=== PATIENT | male | born 1970 | race Caucasian/White ===

== ENCOUNTER 2018-01-01 14:42 | Emergency (ER) | payer OTHER ==
[~2018-01-01] VITALS: Ht 185.4 cm; Wt 94.5 kg
[~2018-01-01 14:42] MED LIST: AMBIEN10 MG PO; BREO ELLIPTA I1 EACH IH; DEXILANT30 MG PO; MOBIC7.5 MG PO; NEURONTIN300 MG PO; PRILOSEC40 MG PO; SINGULAIR10 MG PO; VITAMIN D2000 UNIT PO; ZOFRAN ODT4 MG PO
[2018-01-01 14:59] LABS: HEMATOCRIT 43.1 % (38.0-50.0); HEMOGLOBIN 15.9 G/DL (12.5-16.6); MCH 33.8 PG (29.0-34.0); MCHC 36.9 G/DL (30.0-36.0); MCV 91.7 FL (86-99); PLATELET COUNT 157 K/uL (156-360); RBC DIS.WIDTH-CV 12.2 % (11.8-14.6); RBC DIS.WIDTH-SD 41.1 % (39-53); WHITE BLOOD COUNT 11.5 K/uL (4.1-10.2)
[2018-01-01 15:10] LABS: ALBUMIN 4.7 g/dL (3.2-4.8)
[2018-01-01 15:11] LABS: CHLORIDE 107 mEq/L (99-109); SODIUM 141 mEq/L (136-147)
[2018-01-01 15:13] LABS: GLUCOSE 116 mg/dL (70-99); TOTAL PROTEIN 7.5 g/dL (6.4-8.3)
[2018-01-01 15:16] LABS: ALKALINE PHOSPHATASE 67 IU/L (3-129)
[2018-01-01 15:17] LABS: CREATININE 1.1 mg/dL (0.6-1.3); GFR ESTIMATE (CALCULATED) > 59 mL/min/ (58.99-99999)
[2018-01-01 15:18] LABS: AST (GOT) 14 IU/L (2-34); UREA NITROGEN (BUN) 18 mg/dL (9-23)
[2018-01-01 15:19] LABS: ALT (GPT) 19 IU/L (3-49)
[2018-01-01 15:24] LABS: TROP-I INTERPRETATION NEGATIVE; TROPONIN-I < 0.01 ng/mL (0.0-0.30)
[2018-01-01 15:37] LABS: LIPASE 13 U/L (1.0-51.0)
[2018-01-01] MEDS ORDERED: LEVSIN-SL0.125 MG SL (16:12)
[2018-01-01] MEDS ORDERED: ZOFRAN ODT4 MG PO (16:12)
[2018-01-01 16:48] LABS: APPEARANCE CLEAR ((CLEAR)); BILIRUBIN NEGATIVE; BLOOD NEGATIVE; COLOR YELLOW ((YELLOW)); GLUCOSE (STRIP) NEGATIVE; KETONES NEGATIVE; LEUKOCYTES NEGATIVE; NITRITE NEGATIVE; PROTEIN (STRIP) NEGATIVE; SPECIFIC GRAVITY 1.054 (1.000-1.030); UROBILINOGEN 0.2 MG/DL (0.2-1.0)
[2018-01-01 17:20] VITALS: BP 143/85
== END 2018-01-01 17:21 | disposition home or self-care (01) ==
LOC: EME 14:42
PROVIDERS: Nurse Practitioner Family
DX: R11.2 Nausea with vomiting, unspecified (principal); R19.7 Diarrhea, unspecified; K52.9 Noninfective gastroenteritis and colitis, unspecified; K21.9 Gastro-esophageal reflux disease without esophagitis; J45.909 Unspecified asthma, uncomplicated
CPT/HCPCS: 74177; 80053; 81003; 83605; 83690; 84484; 85027; 93005; 99281; 99284; J2270; J2405; J7030